=== PATIENT | female | born 1990 | race Caucasian/White ===

== ENCOUNTER 2016-05-21 09:03 | Outpatient (CLI) | payer OTHER ==
[~2016-05-21 09:03] MED LIST: Colace PO; DIFLUCAN150 MG PO; ENDOCET 5-3251 EACH PO; FLEXERIL10 MG PO; Feosol PO; MEDROL DOSEPAK4 MG PO; Motrin PO; SPRINTEC1 EACH PO; ZOLOFT50 MG PO; Zoloft PO
[2016-05-21 09:28] VITALS: BP 120/75
[2016-05-21 09:44] VITALS: BP 115/70
[2016-05-21 10:18] LABS: EOSINOPHIL (%) 1.2 % (0-5); EOSINOPHIL COUNT 0.1 K/uL (0-0.3); HEMATOCRIT 31.9 % (36.0-46.0); IMMATURE GRANULOCYTE (%) 0.5 % (0.0-0.7); IMMATURE GRANULOCYTE COUNT 0.1 K/uL; LYMPHOCYTE COUNT 2.3 K/uL (1.0-2.8); MCHC 33.9 G/DL (30.0-36.0); MCV 82.6 FL (83-99); MEAN PLAT.VOLUME 10.7 uM^3 (9.5-12.4); MONOCYTE COUNT 0.8 K/uL (0-0.8); NEUTROPHIL (%) 66.8 % (45-76); NEUTROPHIL COUNT 6.6 K/uL (1.8-6.4); PLATELET COUNT 222 K/uL (156-360); RBC DIS.WIDTH-CV 13.6 % (11.8-14.6); RBC DIS.WIDTH-SD 40.7 % (39-53); RED BLOOD COUNT 3.86 M/uL (3.80-5.20); WHITE BLOOD COUNT 9.8 K/uL (4.1-10.2)
[2016-05-21 10:29] VITALS: BP 103/58
[2016-05-21 10:36] LABS: ANION GAP 10 MEQ/L (2-14); CHLORIDE 106 MEQ/L (99-109); POTASSIUM 4.1 MEQ/L (3.7-5.4); SAMPLE HEMOLYSIS CHECK 0; SAMPLE ICTERIC CHECK 0; SAMPLE LIPEMIA CHECK 0; SODIUM 137 MEQ/L (136-147); TOTAL BILIRUBIN 0.2 MG/DL (0.0-1.0)
[2016-05-21 10:42] LABS: ALKALINE PHOSPHATASE 128 IU/L (3-129); GFR ESTIMATE (CALCULATED) > 59 mL/min/; GLUCOSE 75 mg/dL (70-99); LACTATE DEHYDROGENASE 153 IU/L (20-246); UREA NITROGEN (BUN) 8 mg/dL (9-23); URIC ACID 5.9 mg/dL (3.1-9.2)
[2016-05-21 10:56] LABS: BILIRUBIN NEGATIVE; BLOOD NEGATIVE; COLOR YELLOW ((YELLOW)); GLUCOSE (STRIP) NEGATIVE; KETONES NEGATIVE; LEUKOCYTES NEGATIVE; NITRITE NEGATIVE; PROTEIN (STRIP) NEGATIVE; SPECIFIC GRAVITY 1.013 (1.000-1.030); UROBILINOGEN 0.2 MG/DL (0.2-1.0)
[2016-05-21 11:02] LABS: ADD MIUA? NO; UCUL ADDED? NO
[2016-05-21 11:29] LABS: AMPHETAMINES QUANT VALUE 0 NG/ML; BARBITUATES QUANT VALUE 0 NG/ML; BENZODIAZEPINES QUANT VALUE 0 NG/ML; BENZODIAZEPINES, URINE SCREEN Negative (200 ng/mL); MARIJUANA QUANT VALUE 0 NG/ML; OPIATES QUANTITATIVE VALUE 0 NG/ML; PHENCYCLIDINE QUANT VALUE 0 NG/ML; UR CREATININE CONCENTRATION 60.5 MG/DL
== END 2016-05-21 12:01 | disposition home or self-care (01) ==
LOC: LDRP-OP 09:03 → 2WEST 09:04
PROVIDERS: Advanced Practice Midwife
DX: O99.89 Other specified diseases and conditions complicating pregnancy, childbirth and the puerperium (principal); R51 Headache; H53.9 Unspecified visual disturbance; Z3A.35 35 weeks gestation of pregnancy
CPT/HCPCS: 59025; 80053; 81003; 82570; 83615; 84156; 84550; 85025; G0378

== ENCOUNTER 2016-06-08 13:41 | Inpatient (IN) | payer OTHER ==
[~2016-06-08] VITALS: Ht 157.5 cm; Wt 81.6 kg
[2016-06-08] VITALS (11 sets, daily range): BP systolic 110–139; BP diastolic 60–92
[2016-06-08] MEDS ORDERED: PRENATAL TABLE1 EAC3 PO (14:05)
[2016-06-08 16:01] LABS: EOSINOPHIL (%) 0.9 % (0-5); EOSINOPHIL COUNT 0.1 K/uL (0-0.3); HEMATOCRIT 32.4 % (36.0-46.0); IMMATURE GRANULOCYTE (%) 0.6 % (0.0-0.7); IMMATURE GRANULOCYTE COUNT 0.1 K/uL; LYMPHOCYTE COUNT 2.8 K/uL (1.0-2.8); MCH 27.9 PG (29.0-34.0); MCHC 34.3 G/DL (30.0-36.0); MCV 81.4 FL (83-99); MEAN PLAT.VOLUME 11.1 uM^3 (9.5-12.4); MONOCYTE (%) 6.9 % (3-12); MONOCYTE COUNT 0.6 K/uL (0-0.8); NEUTROPHIL (%) 60.3 % (45-76); NEUTROPHIL COUNT 5.4 K/uL (1.8-6.4); PLATELET COUNT 222 K/uL (156-360); RBC DIS.WIDTH-CV 13.9 % (11.8-14.6); RBC DIS.WIDTH-SD 40.9 % (39-53); RED BLOOD COUNT 3.98 M/uL (3.80-5.20)
[2016-06-09] VITALS: BP 113/65
[2016-06-09 06:37] LABS: EOSINOPHIL (%) 0.2 % (0-5); HEMATOCRIT 28.5 % (36.0-46.0); IMMATURE GRANULOCYTE (%) 0.2 % (0.0-0.7); LYMPHOCYTE COUNT 2.8 K/uL (1.0-2.8); MCH 26.5 PG (29.0-34.0); MCHC 32.6 G/DL (30.0-36.0); MCV 81.2 FL (83-99); MEAN PLAT.VOLUME 10.9 uM^3 (9.5-12.4); MONOCYTE (%) 6.7 % (3-12); MONOCYTE COUNT 0.8 K/uL (0-0.8); NEUTROPHIL (%) 70.2 % (45-76); NEUTROPHIL COUNT 8.7 K/uL (1.8-6.4); PLATELET COUNT 213 K/uL (156-360); RBC DIS.WIDTH-CV 13.8 % (11.8-14.6); RBC DIS.WIDTH-SD 40.4 % (39-53); RED BLOOD COUNT 3.51 M/uL (3.80-5.20)
[2016-06-09 06:39] LABS: WHITE BLOOD COUNT 12.4 K/uL (4.1-10.2)
[2016-06-09 07:51] VITALS: BP 96/51
[2016-06-09 15:03] VITALS: BP 131/69
[2016-06-09 23:32] VITALS: BP 108/55
[2016-06-10 07:33] VITALS: BP 112/76
[2016-06-10] MEDS ORDERED: CAMILA0.35 MG PO (12:54)
[2016-06-10] MEDS ORDERED: IBUPROFEN800 MG PO (12:54)
== END 2016-06-10 15:25 | disposition home or self-care (01) | DRG 775 ==
LOC: LDRP-OP 13:41 → 2WEST 13:42 → LDRP-OP 07-22 12:28
PROVIDERS: Advanced Practice Midwife
DX: O42.02 Full-term premature rupture of membranes, onset of labor within 24 hours of rupture (principal); O99.354 Diseases of the nervous system complicating childbirth; D62 Acute posthemorrhagic anemia; Z37.0 Single live birth; G43.909 Migraine, unspecified, not intractable, without status migrainosus; D50.8 Other iron deficiency anemias; E66.9 Obesity, unspecified; Z68.32 Body mass index [BMI] 32.0-32.9, adult; Z3A.38 38 weeks gestation of pregnancy; O99.02 Anemia complicating childbirth; O70.0 First degree perineal laceration during delivery; O99.214 Obesity complicating childbirth; O69.81X1 Labor and delivery complicated by cord around neck, without compression, fetus 1
CPT/HCPCS: 85025; J0595; J7120; Q0169

== ENCOUNTER 2017-07-03 09:42 | Emergency (ER) | payer OTHER ==
[~2017-07-03] VITALS: Ht 157.5 cm; Wt 77.8 kg
[~2017-07-03 09:42] MED LIST changes: +CAMILA0.35 MG PO; +IBUPROFEN800 MG PO; +PRENATAL TABLE1 EAC3 PO
[2017-07-03] MEDS ORDERED: LIDODERM 5% P1 PATCH TD (11:31)
[2017-07-03] MEDS ORDERED: MOTRIN800 MG PO (11:31)
[2017-07-03] MEDS ORDERED: FLEXERIL10 MG PO (11:31)
[2017-07-03 11:59] VITALS: BP 99/75
== END 2017-07-03 12:00 | disposition home or self-care (01) ==
LOC: EME 09:42
DX: S06.0X0A Concussion without loss of consciousness, initial encounter (principal); V89.2XXA Person injured in unspecified motor-vehicle accident, traffic, initial encounter; R51 Headache; M54.2 Cervicalgia
CPT/HCPCS: 70450; 72040; 93005; 99281; 99284